=== PATIENT | male | born 1970 | race Caucasian/White ===

== ENCOUNTER 2016-03-22 22:29 | Emergency (ER) | payer OTHER ==
[2016-03-22] MEDS ORDERED: OPTIRAY 350 100 ML VIAL HMH IV ONE (22:30)
[2016-03-23] MEDS ORDERED: KETOROLAC 30 MG/ML VIAL ONE (00:09)
== END 2016-03-23 03:16 | disposition home or self-care (01) ==
LOC: ER 22:29
DX: R10.11 Right upper quadrant pain (principal); K55.069 Acute infarction of intestine, part and extent unspecified; Z87.442 Personal history of urinary calculi
CPT/HCPCS: 36415; 74177; 76705; 80053; 81003; 83690; 85025; 96374